=== PATIENT | female | born 1945 | race Caucasian/White ===

== ENCOUNTER → 2019-03-13 | Emergency (ER) | payer MEDICARE, MEDICAID ==
[~2019-03-13] VITALS: Ht 152.4 cm; Wt 93.0 kg
[~2019-03-13] MED LIST: CIPR-264 PO; HYDROCODONE/ACETAMINOPHEN 10/325MG TABLET PO ONE; LORA2ORA5 PO; QUET300T5 PO; TRAMADOL 50MG TABLET PO ONE; advair
[2019-03-13 20:42] LABS: EOSINOPHILS % 1.4 % (0.0-5.0); HEMATOCRIT. 45.8 % (36.0-48.0); HEMOGLOBIN. 15.2 g/dL (12.0-16.0); LYMPHOCYTES % 36.3 % (20.0-50.0); MEAN CORPUSCULAR HEMOGLOBIN 30.3 pg (28.0-32.0); MEAN CORPUSCULAR VOLUME 91.5 fL (81.0-99.0); MEAN PLATELET VOLUME 9.9 fl (7.4-10.4); MONOCYTES % 8.2 % (2.0-8.0); NEUTROPHILS % 53.1 % (40.0-76.0); PLATELET 198 x1000/uL (130-400); RED BLOOD CELL COUNT 5.01 mill/uL (4.2-5.4); RED CELL DISTRIBUTION WIDTH 13.9 % (11.6-14.6)
[2019-03-13 20:45] LABS: CHLORIDE 107 mEq/L (98-107)
[2019-03-13 20:46] LABS: PROTHROMBIN TIME 10.6 sec (9.6-11.0)
[2019-03-13] MEDS: ACETAMINOPHEN 500MG TABLET PO ONE ×2 (20:49→20:51)
[2019-03-14 01:00] VITALS: BP 159/55
== END | disposition home or self-care (01) ==
LOC: ER 18:06
DX: R51 Headache (principal); J44.9 Chronic obstructive pulmonary disease, unspecified; F41.9 Anxiety disorder, unspecified; F31.9 Bipolar disorder, unspecified; E78.00 Pure hypercholesterolemia, unspecified
CPT/HCPCS: 36415; 99284

== ENCOUNTER 2022-03-10 09:50 | Emergency (ER) | payer MEDICARE, MEDICAID ==
[~2022-03-10] VITALS: Ht 152.4 cm; Wt 100.0 kg
[~2022-03-10 09:50] MED LIST changes: +ATOR20TA PO; +BUSP15TA3 PO; +EZET10TA13 PO; -HYDROCODONE/ACETAMINOPHEN 10/325MG TABLET PO ONE; +LISI20TA31 PO; -TRAMADOL 50MG TABLET PO ONE
[2022-03-10] MEDS ORDERED: MORPHINE SULFATE 4 MG/ML CPJ (NOT FOR IM USE) IV ONE (10:30)
[2022-03-10] MEDS ORDERED: ONDANSETRON HCL 4MG/2ML INJ IV ONE (10:30)
[2022-03-10 12:21] LABS: HEMATOCRIT 45.8 % (36.0-48.0); HEMOGLOBIN 14.9 g/dL (12.0-16.0); MEAN CORPUSCULAR HEMOGLOBIN 29.4 pg (28.0-32.0); PLATELET 214 x1000/uL (130-400); RED BLOOD CELL COUNT 5.09 mill/uL (4.2-5.4)
[2022-03-10 12:27] LABS: CHLORIDE 106 mEq/L (98-107)
[2022-03-10 12:35] LABS: CREATINE KINASE 337 IU/L (26-192)
[2022-03-10 14:00] VITALS: BP 139/58
== END 2022-03-10 15:13 | disposition home or self-care (01) ==
LOC: ER 10:11
DX: S70.02XA Contusion of left hip, initial encounter (principal); J44.1 Chronic obstructive pulmonary disease with (acute) exacerbation; I10 Essential (primary) hypertension; Z98.890 Other specified postprocedural states; W06.XXXA Fall from bed, initial encounter; Y93.89 Activity, other specified; Y92.89 Other specified places as the place of occurrence of the external cause; Y99.8 Other external cause status
CPT/HCPCS: 36415; 71045; 72170; 73552; 80048; 82550; 85027; 96374; 96375; 99284; J2270; J2405; Z7610